=== PATIENT | female | born 1995 | race Caucasian/White ===

== ENCOUNTER 2020-08-31 01:15 | Emergency (ER) | payer SELFPAY ==
[~2020-08-31] VITALS: Ht 165.1 cm; Wt 125.0 kg
[2020-08-31] MEDS ORDERED: KETOROLAC 60MG/2ML VIAL IM ONE (02:30)
[2020-08-31 02:40] LABS: CLARITY URINE CLEAR (CLEAR); COLOR URINE YELLOW (YELLOW); KETONES URINE NEGATIVE (NEGATIVE); LEUKOCYTE ESTERASE URINE TRACE (NEGATIVE); NITRITE URINE NEGATIVE (NEGATIVE); OCCULT BLOOD URINE 3+ (NEGATIVE); PH URINE 5.5 (4.5-8.0); PROTEIN URINE TRACE (NEGATIVE); SPECIFIC GRAVITY URINE 1.019 (1.005-1.030)
[2020-08-31 03:42] VITALS: BP 118/76
[2020-08-31] MEDS ORDERED: NITR-87 MT (03:48)
== END 2020-08-31 03:55 | disposition home or self-care (01) ==
LOC: ER 01:15
DX: N39.0 Urinary tract infection, site not specified (principal)
CPT/HCPCS: 81003; 81025; 96372; 99283; J1885